=== PATIENT | male | born 1970 | race Caucasian/White ===

== ENCOUNTER 2020-02-26 02:28 | Emergency (ER) | payer OTHER ==
--- NOTE | 2020-02-26 03:03 | PDOC ---
Attending Attestation - Resident Resident Name: PerryEvelyn - ED Attending Attestation I have performed the following: I have examined & evaluated the patient, The case was reviewed & discussed with the resident, I agree w/resident's findings & plan - HPI HPI: 02/26/20 05:24 see resident hpi - Physicial Exam PE: 02/26/20 05:24 see resident exam - Medical Decision Making 02/26/20 05:25 49-year-old male with right flank pain CT scan revealed a 2.4 mm distal right ureteral stone at the right UVJ On reevaluation post Toradol patient is completely pain-free Will DC with outpatient urology follow-up Discharge - Discharge Information Problems reviewed: Yes Clinical Impression/Diagnosis: Right nephrolithiasis Condition: Improved Disposition: HOME - Follow up/Referral Referrals: Morteza Abdi MD [Primary Care Provider] - - Patient Discharge Instructions Patient Printed Discharge Instructions: DI for Kidney Stones Additional Instructions: You have been seen in the Emergency Department for your pain. Your CT scan shows you have a right kidney stone that had almost passed. Your pain improved so it has likely passed or almost passed and should pass on its own. At this time it's most important to stay hydrated. If you experience pain, you can take Tylenol or Ibuprofen as directed on the medication bottle, but do not exceed 3g of Ibuprofen or 4g of Tylenol a day. Follow-up with your primary care doctor within 1 week. Return to the Emergency Department immediately if you experience fever, vomiting, passing out, or any other new or worsening symptom. - Post Discharge Activity
[2020-02-26] MEDS ORDERED: morphine CARPU-JECT 4 MG/1 ML DISP.SYRIN IVPUSH ONE (03:06)
[2020-02-26 03:09] VITALS: BP 160/92; PULSE 92; TEMP 98.3; BMI 32.5
[2020-02-26] MEDS ORDERED: SODIUM CHLORIDE 0.9% 500 ML INFUS.BAG IV ONE (03:11)
[2020-02-26] MEDS ORDERED: ONDANSETRON 4 MG/2 ML VIAL IVPUSH ONE (03:11)
[2020-02-26] MEDS ORDERED: morphine SULFATE 4 MG/ML VIAL ONE (03:13)
--- NOTE | 2020-02-26 03:27 | PDOC ---
History of Present Illness - General Chief Complaint: Pain, Acute Stated Complaint: PAIN Time Seen by Provider: 02/26/20 02:55 Past History - Medical History Allergies/Adverse Reactions: Allergies Allergy/AdvReac Type Severity Reaction Status Date / Time No Known Allergies Allergy Verified 02/26/20 02:58 - Psycho-Social/Smoking History Smoking History: Never smoked Information on smoking cessation initiated: No - Substance Abuse Hx (Audit-C & DAST Scrn) How often the patient has a drink containing alcohol: Monthly or less Number of drinks the patient has on a typical day: 1 or 2 How often the patient has six or more drinks on one occasion: Never Score: In Men: 4 or > Positive; In Women: 3 or > Positive: 1 Screen Result (Pos requires Nsg. Audit-10AR): Negative In the last yr the pt used illegal drug/Rx for NonMed reason: No Score: Yes response is considered Positive: 0 Screen Result (Positive result requires Nsg. DAST-10): Negative *Physical Exam - Vital Signs Last Vital Signs Temp Pulse Resp BP Pulse Ox 98.3 F 92 H 18 160/92 99 02/26/20 02:55 02/26/20 02:55 02/26/20 02:55 02/26/20 02:55 02/26/20 02:55 ED Treatment Course - LABORATORY CBC & Chemistry Diagram: 02/26/20 03:25 02/26/20 03:25 - RADIOLOGY Radiology Studies Ordered: Category Date Time Status SPIRAL- RENAL-STONE CT [CT] Stat CT Scan 02/26/20 03:11 Ordered Medical Decision Making - Medical Decision Making 02/26/20 03:12 HPI: 49yo M hx HTN presents from home c/o 2hrs sudden onset woke from sleep R flank stabbing pain constant/intermittently worse now moving down R side to RLQ nothing makes worse/better, no hx similar sx. Endorses nausea. In [place] prior. No pain meds tried. Endorses kidney stones in father. Denies abdominal surgeries, recent abx, travel, hx kidney stones, alcohol, drugs, smoking, trauma, heavy lifting, vomiting, fever, chills, hematuria, diarrhea, constipation, blood in stool, dysuria, chest pain, SOB, cough, URI-like sx, dizziness, headache. Endorses sick covid contacts. ROS: Constitutional: Negative for chills, fever, fatigue, diaphoresis. HENT: Negative for sore throat, rhinorrhea, congestion. Eyes: Negative for visual disturbance. Respiratory: Negative for shortness of breath, cough, and wheezing. Cardiovascular: Negative for chest pain, palpitations, and leg swelling. Gastrointestinal: Positive for abdominal pain, nausea. Negative for blood in stool, constipation, diarrhea, and vomiting. Genitourinary: Positive for flank pain. Negative for dysuria, and hematuria. Musculoskeletal: Negative for myalgias, back pain, and neck pain. Skin: Negative for rash. Neurological: Negative for light-headedness, dizziness, vertigo, syncope, weakness, numbness and headaches. Psychiatric/Behavioral: Negative for behavioral problems and confusion. PE: Gen: Alert, NAD, uncomfortable-appearing, writhing on bed HEENT: PERRL, EOMI, MMM, NCAT. No conjunctival pallor. Sclera are non-icteric. CV: Regular rate and rhythm. No murmurs, rubs, or gallops. PULM: No resp distress. CTAB, no wheezes, rales, or rhonchi. ABD: soft, +diffuse TTP with guarding, ND, no rebound tenderness, no CVA tender ness. BACK: No TTP of c/t/l-spine. No step-offs or deformities. MSK: No bony deformities. 2+ pulses in all extremities. NEURO: AAOx3. PERRL. No gross CN deficits. Strength and sensation grossly intact throughout. EXTREMITIES: No cyanosis. No clubbing. No edema. PSYCH: Normal mood and thought pattern. SKIN: Warm and dry. Normal capillary refill. No rashes. No jaundice. MDM: 49yo M hx HTN presents from home with 2hrs sudden onset woke from sleep R flank pain with associated nausea. Hemodynamically stable, afebrile, diffuse abdominal TTP with guarding. Ddx: most c/w kidney stone. Also consider infected stone, UTI, appendicitis, AAA, colitis, diverticulitis, cholelithiasis/cystitis, MSK, infection, metabolic derangement, anemia -CBC,CMP,Lipase,Cardiac profile,UA/UC -IVF -Spiral CT -Pain management: morphine, toradol -Dispo: pending workup and reassessment, likely d/c home 02/26/20 05:08 Labs reviewed. Notable for NINA BUN/Cr 18.8/1.4 CT reviewed: Positive for a 2.4 mm distal right ureteral stone at the right ureterovesicular junction. There is very slight resultant hydroureter and minimal right hydronephrosis. The stone could be in the process of passing into the urinary bladder lumen from the right ureter. Check for any resolution of symptoms. Possible very tiny nonobstructing left renal stone. No left urinary tract obstruction. Pt states pain resolved completely now. Ambulates without difficulty. Able to give urine now. 1L NS completed. Pt tolerating PO. 02/26/20 05:18 UA negative for UTI or blood Pt remains free of pain Safe for d/c Will discharge home with PCP f/u. Return precautions given. Pt understands all discharge instructions and all questions were answered. Discharge - Discharge Information Problems reviewed: Yes Clinical Impression/Diagnosis: Right nephrolithiasis Condition: Improved Disposition: HOME - Admission No - Follow up/Referral Referrals: Morteza Abdi MD [Primary Care Provider] - - Patient Discharge Instructions Patient Printed Discharge Instructions: DI for Kidney Stones Additional Instructions: You have been seen in the Emergency Department for your pain. Your CT scan shows you have a right kidney stone that had almost passed. Your pain improved so it has likely passed or almost passed and should pass on its own. At this time it's most important to stay hydrated. If you experience pain, you can take Tylenol or Ibuprofen as directed on the medication bottle, but do not exceed 3g of Ibuprofen or 4g of Tylenol a day. Follow-up with your primary care doctor within 1 week. Return to the Emergency Department immediately if you experience fever, vomiting, passing out, or any other new or worsening symptom. - Post Discharge Activity
[2020-02-26 03:50] LABS: BASO % 0.4 % (0-2.0); EOS % 1.2 % (0-4.5); HEMATOCRIT 45.8 % (35.4-49); HEMOGLOBIN 15.2 GM/dL (11.7-16.9); LYMPH % 26.9 % (8-40); MCH 28.6 pg (25.7-33.7); MCHC 33.1 g/dl (32.0-35.9); MEAN CELL VOLUME 86.3 fl (80-96); MEAN PLT VOLUME 10.2 fl (7.5-11.1); MONO % 8.4 % (3.8-10.2); NEUT % 63.1 % (42.8-82.8); PLATELET COUNT 204 K/MM3 (134-434); RBC 5.31 M/mm3 (4.00-5.60); RDW 14.1 % (11.9-15.9); WHITE BLOOD COUNT 8.5 K/mm3 (4.0-10.0)
[2020-02-26] MEDS ORDERED: KETOROLAC TROMETHAMINE 15 MG/ML VIAL IVPUSH ONE (03:55)
[2020-02-26] MEDS ORDERED: KETOROLAC TROMETHAMINE 15 MG/ML VIAL ONE (04:02)
[2020-02-26 04:16] LABS: ALBUMIN 4.4 g/dl (3.4-5.0); BILIRUBIN,TOTAL 0.6 mg/dL (0.2-1); BLOOD UREA NITROGEN 18.8 mg/dL (7-18); CALCIUM 9.9 mg/dL (8.5-10.1); CREATININE 1.4 mg/dL (0.55-1.3); POTASSIUM 3.6 mmol/L (3.5-5.1); TOT PROT 7.6 g/dl (6.4-8.2)
[2020-02-26 05:17] LABS: PH,URINE 6.5 (5.0-8.0); URINE APPEARANCE CLEAR; URINE BILIRUBIN NEGATIVE (NEGATIVE); URINE COLOR YELLOW; URINE GLUCOSE (UA) TRACE (NEGATIVE); URINE KETONE NEGATIVE (NEGATIVE); URINE LEUK ESTERASE NEGATIVE (NEGATIVE); URINE NITRITE NEGATIVE (NEGATIVE); URINE PROTEIN NEGATIVE (NEGATIVE); URINE UROBILINOGEN 0.2 mg/dL (0.2-1.0)
== END 2020-02-26 05:30 | disposition home or self-care (01) ==
LOC: JER 02:28
PROC: 3E033NZ Introduction of Analgesics, Hypnotics, Sedatives into Peripheral Vein, Percutaneous Approach (ICD-10-PCS; principal; 2020-02-26)
PROC: 3E033GC Introduction of Other Therapeutic Substance into Peripheral Vein, Percutaneous Approach (ICD-10-PCS; 2020-02-26)
DX: N20.0 Calculus of kidney (principal)
CPT/HCPCS: 36415; 74176-TC; 80053; 81003; 82550; 82553; 83690; 84484; 85025; 87086; 99285-25

== ENCOUNTER 2020-08-28 22:42 | Emergency (ER) | payer OTHER ==
[2020-08-28 22:47] VITALS: PULSE 78; TEMP 98.5; BMI 32.1
[2020-08-29] MEDS ORDERED: ACETAMINOPHEN 325 MG TABLET (FP) PO ONE (00:34)
[2020-08-29] MEDS ORDERED: ACETAMINOPHEN 325 MG TABLET (FP) ONE (00:35)
[2020-08-29 01:21] LABS: BASO % 0.7 % (0-2.0); EOS % 1.5 % (0-4.5); HEMATOCRIT 45.5 % (35.4-49); HEMOGLOBIN 15.1 GM/dL (11.7-16.9); LYMPH % 25.2 % (8-40); MCH 28.6 pg (25.7-33.7); MCHC 33.1 g/dl (32.0-35.9); MEAN CELL VOLUME 86.5 fl (80-96); MEAN PLT VOLUME 9.6 fl (7.5-11.1); MONO % 12.2 % (3.8-10.2); NEUT % 60.4 % (42.8-82.8); PLATELET COUNT 191 K/MM3 (134-434); RBC 5.26 M/mm3 (4.00-5.60); RDW 14.1 % (11.9-15.9); WHITE BLOOD COUNT 6.3 K/mm3 (4.0-10.0)
[2020-08-29 01:49] LABS: CHLORIDE 107 mmol/L (98-107); POTASSIUM 4.2 mmol/L (3.5-5.1); SODIUM 142 mmol/L (136-145)
[2020-08-29 01:52] LABS: ALBUMIN 4.4 g/dl (3.4-5.0); ANION GAP 5 MMOL/L (8-16); BLOOD UREA NITROGEN 18.7 mg/dL (7-18); CALCIUM 9.2 mg/dL (8.5-10.1); CO2 30 mmol/L (21-32); GLUCOSE,RANDOM 112 mg/dL (74-106)
[2020-08-29 01:55] LABS: CREATININE 1.2 mg/dL (0.55-1.3); SGOT/AST 19 U/L (15-37); SGPT/ALT 44 U/L (13-61)
[2020-08-29 01:57] LABS: BILIRUBIN,TOTAL 0.5 mg/dL (0.2-1); TOT PROT 7.6 g/dl (6.4-8.2)
[2020-08-29 01:58] LABS: ALK PHOS 88 U/L (45-117)
[2020-08-29 02:59] VITALS: BP 140/93
== END 2020-08-29 02:57 | disposition home or self-care (01) ==
LOC: JER 22:42
DX: R51.9 Headache, unspecified (principal); I10 Essential (primary) hypertension
CPT/HCPCS: 36415; 70450-TC; 80053; 82550; 82553; 84484; 85025; 93005; 93010; 99285-25

== ENCOUNTER 2022-04-01 12:42 | Emergency (ER) | payer OTHER ==
[2022-04-01 12:53] VITALS: BP 132/79; PULSE 80; RESP 18; TEMP 97.9; BMI 31.5
== END 2022-04-01 14:04 | disposition home or self-care (01) ==
LOC: JER 12:42
DX: S76.012A Strain of muscle, fascia and tendon of left hip, initial encounter (principal)
CPT/HCPCS: 99283-25